=== PATIENT | male | born 1995 | race Caucasian/White ===

== ENCOUNTER 2019-05-20 07:54 | Emergency (ER) | payer SELFPAY ==
[~2019-05-20] VITALS: Ht 185.4 cm; Wt 100.0 kg
[2019-05-20] MEDS ORDERED: LORAZEPAM 2MG/ML CPJ IM STA (08:13)
[2019-05-20] MEDS ORDERED: LORAZEPAM 2MG/ML CPJ ONE (08:19)
[2019-05-20 08:56] LABS: CHLORIDE 104 mEq/L (98-107); HEMATOCRIT. 47.6 % (42.0-52.0); HEMOGLOBIN. 16.5 g/dL (14.0-18.0); MEAN CORPUSCULAR HEMOGLOBIN 31.7 pg (28.0-32.0); MEAN CORPUSCULAR VOLUME 91.5 fL (80.0-94.0); MEAN PLATELET VOLUME 8.6 fl (7.4-10.4); PLATELET 309 x1000/uL (130-400)
[2019-05-20 09:00] LABS: ETHANOL BLOOD < 10 mg/dL
[2019-05-20 09:03] LABS: CARBAMAZEPINE < 0.5 ug/mL (4-12)
[2019-05-20 09:05] LABS: PHENOBARBITAL < 2.1 ug/mL (15.0-40.0); VALPROIC ACID < 3.0 ug/mL (50-100)
[2019-05-20 09:16] LABS: PLATELET ESTIMATE NORMAL
[2019-05-20 10:07] VITALS: BP 130/74
== END 2019-05-20 10:11 | disposition home or self-care (01) ==
LOC: ER 08:18
DX: G40.909 Epilepsy, unspecified, not intractable, without status epilepticus (principal); F15.10 Other stimulant abuse, uncomplicated
CPT/HCPCS: 36415; 80053; 80156; 80165; 80184; 80185; 80320; 85025; 90471; 99283; J2060; G0480